=== PATIENT | female | born 1955 | race Caucasian/White ===

== ENCOUNTER → 2017-01-20 19:09 | Emergency (ER) | payer BC ==
[~2017-01-20 19:09] MED LIST: Dexamethasone IV* 4 MG/ML 1 ML (4 MG) IM ONE; Etomidate* 2 MG/ML 10 ML VIAL IV ONE; Labetalol IV* 5 MG/ML 20 ML VIAL IV PUSH ONE; Labetalol IV* 5 MG/ML 20 ML VIAL ONE; Lidocaine 2% (CARDIAC)* 20 MG/ML 5 ML SYRINGE (100 MG) INJ ONE; Lidocaine 2% (CARDIAC)* 20 MG/ML 5 ML SYRINGE (100 MG) ONE; Morphine INJ* 4 MG/ML 1 ML CARPUJECT IV ONE; NS 0.9% 1000 ML* 1,000 ML IV ONE; PROCHLORPERAZINE INJ 5 MG/ML 2 ML VIAL IV ONE; Propofol* 100 ML ONE; Propofol* 500 MG/50 ML BTL IV SCH; Rocuronium* 10 MG/ML VIAL IV ONE; Rocuronium* 10 MG/ML VIAL ONE; diPHENhydraMINE IV* 25 MG in NS 0.9% 50 ML* 50 ML IVPB ONE; fentaNYL* 50 MCG/ML 2 ML VIAL (100 MCG VIAL) IV SLOW PU ONE; fentaNYL* 50 MCG/ML 2 ML VIAL (100 MCG VIAL) ONE; niCARdipine 0.1MG/ML IVPREMIX* 20 MG/200 ML BAG IV ONE
[2017-01-20 19:43] LABS: Hematocrit 42 % (35-47); Hemoglobin 14.3 g/dl (12.0-16.0); Mean Corpuscular HGB Conc 34 g/dl (31-36); Mean Corpuscular Hemoglobin 31 pg (27-31); Mean Corpuscular Volume 90 fL (80-97); Mean Platelet Volume 8 um3 (7.4-10.4); Red Blood Count 4.63 10^6/ul (4.0-5.4); Red Cell Distribution Width 12 % (10.5-15); White Blood Count 8.9 10^3/ul (3.5-10.8)
[2017-01-20 19:59] LABS: Albumin 4.4 g/dL (3.2-5.2); BUN/Creatinine Ratio 18.7 (8-20); Calcium 9.1 mg/dL (8.6-10.3); EGFR African American 101.4 (>60); EGFR Non-African American 78.8 (>60); Globulin 3.1 g/dL (2-4); Total Bilirubin 0.5 mg/dL (0.2-1.0); Total Protein 7.5 g/dL (6.4-8.9)
--- NOTE | 2017-01-20 20:12 | RAD ---
Indication: Evaluate for subarachnoid hemorrhage. Patient with headaches. CT of the brain was performed without IV contrast. There is shift of the midline structures towards the left of approximately 9.8 mm. There is a large right temporal intraparenchymal hematoma measuring up to 5.6 x 3.9 cm. This is predominantly in the right temporal lobe. There is displacement of the temporal horn of the right lateral ventricle with effacement of the suprasellar cistern. I cannot totally exclude uncal herniation. IMPRESSION: Large parenchymal hematoma in the right temporal lobe with medial displacement of the temporal horn of the right lateral ventricle. There is effacement of the suprasellar cistern. The possibility of uncal herniation should BE considered. Findings discussed with Dr. Yo at 2008 hours
[2017-01-20 20:21] LABS: Potassium 3.7 mmol/L (3.5-5.0)
[2017-01-20 21:08] VITALS: BP 157/93
--- NOTE | 2017-01-20 21:22 | ED ---
Taylor Wills Thomas, scribed for John Yo MD on 01/20/17 at 1929 . Headache - HPI Summary HPI Summary: The pt is a 61 y/o F BIBA c/o a sudden-onset R-sided RIGGS that began today at 17: 30. The pain radiates across the left side of her head. She has been having an intermittent dull headache for the last week. She says this is the worst headache of life. The pain is rated 8/10. The pain is aggravated by nothing. It is not aggravated by bright lights, smells, changes in head position, or palpation. 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 Pt additionally c/ o vomiting (three episodes). Pt denies focal weakness, photophobia, fever, gait disruption, and visual changes. The patient is accompanied by three family members. - History Of Current Complaint Chief Complaint: EDHeadache Stated Complaint: VOMITING/HEAD PAIN Hx Obtained From: Patient, Family/Gynaecological Oncologist - two family members are present Onset/Duration: Sudden Onset, Started hours ago - onset today at 17:30, Still Present Initially Headache Was: "Worst Headache Ever" Currently Pain Is: Current Pain Scale(0-10)= - 8 Timing: Constant Location of Headache: Other: - R-sided Radiates to: Left side Aggravating Factor: Nothing, Other - NOT aggravated by bright lights, smells, head position, or palpation Allevating Factors: Nothing Associated Signs And Symptoms: Vomiting - three episodes, Other (Noted In Comments) - NEGATIVE: focal weakness, photophobia, fever, gait disruption, visual changes - Allergies/Home Medications Allergies/Adverse Reactions: Allergies Allergy/AdvReac Type Severity Reaction Status Date / Time Cephalexin [From Keflex] Allergy Muscle Ache Verified 01/20/17 19:30 Home Medications: Home Medications Lisinopril [Zestril 10 MG-] 10 mg PO ONCE 01/20/17 [History Confirmed 01/20/17] PMH/Surg Hx/FS Hx/Imm Hx Previously Healthy: No Endocrine/Hematology History: Reports: Other Endocrine/Hematological Disorders - Hx Tatiana Cardiovascular History: Reports: Hx Hypercholesterolemia, Hx Hypertension Neurological History: Denies: Hx CVA - Cancer History Hx Chemotherapy: No Hx Radiation Therapy: No Infectious Disease History: No Infectious Disease History: Denies: Traveled Outside the [place] in Last 30 Days - Family History Known Family History: Positive: Cardiac Disease, Other - CVA - Social History Alcohol Use: Rare Substance Use Type: Reports: None Smoking Status (MU): Never Smoked Tobacco Review of Systems Negative: Fever Negative: Photophobia, Other - NEGATIVE: visual changes Positive: Vomiting - three episodes Neurological: Other - NEGATIVE: gait disruption Positive: Headache. Negative: Weakness - focal All Other Systems Reviewed And Are Negative: Yes Physical Exam - Summary Physical Exam Summary: Appearance: Well-appearing, Well-nourished Skin: Warm Eyes: Normal ENT: Normal. There is no photophobia or phonophobia. Neck: Supple, nontender Respiratory: Clear to auscultation Cardiovascular: Normal Abdomen: Soft, nontender Bowel: Present Musculoskeletal: Normal, Strength/ROM Intact. Good ROM in her neck. There is no midline cervical tenderness. Neurological: Normal, Alert, Oriented to Person. CN II-XII intact. Negative Kernig's sign. Psychiatric: Normal Triage Information Reviewed: Yes Vital Signs On Initial Exam: Initial Vitals Temp Pulse Resp BP Pulse Ox 97.8 F 88 18 154/91 93 01/20/17 19:18 01/20/17 19:18 01/20/17 19:18 01/20/17 19:18 01/20/17 19:18 Vital Signs Reviewed: Yes - [place] Coma Scale Coma Scale Total: 15 Procedures - Intubation Time of Intubation: 21:00 - approx Intubation Method: orotracheal Tube Size (cm): 7.5 Breath Sounds after Intubation: equal Intubation Complications: no complications Post Intubation Xray: No - Unable to obtain due to time constrants. Med used: Atomadite and rocuronium Diagnostics - Vital Signs Vital Signs Temp Pulse Resp BP Pulse Ox 01/20/17 19:18 97.8 F 88 18 154/91 93 - Laboratory Lab Results: Lab Results 01/20/17 01/20/17 01/20/17 Range/Units 19:30 19:30 19:30 WBC 8.9 (3.5-10.8) 10^3/ul RBC 4.63 (4.0-5.4) 10^6/ul Hgb 14.3 (12.0-16.0) g/dl Hct 42 (35-47) % MCV 90 (80-97) fL MCH 31 (27-31) pg MCHC 34 (31-36) g/dl RDW 12 (10.5-15) % Plt Count 301 (150-450) 10^3/ul MPV 8 (7.4-10.4) um3 Neut % (Auto) 57.9 (38-83) % Lymph % (Auto) 31.4 (25-47) % [place] % (Auto) 8.0 (1-9) % Eos % (Auto) 1.9 (0-6) % Baso % (Auto) 0.8 (0-2) % Absolute Neuts (auto) 5.2 (1.5-7.7) 10^3/ul Absolute Lymphs (auto) 2.8 (1.0-4.8) 10^3/ul Absolute Monos (auto) 0.7 (0-0.8) 10^3/ul Absolute Eos (auto) 0.2 (0-0.6) 10^3/ul Absolute Basos (auto) 0.1 (0-0.2) 10^3/ul Absolute Nucleated RBC 0.01 10^3/ul Nucleated RBC % 0.1 INR (Anticoag Therapy) 0.88 L (0.89-1.11) Sodium 135 (133-145) mmol/L Potassium 3.7 (3.5-5.0) mmol/L Chloride 100 L (101-111) mmol/L Carbon Dioxide 26 (22-32) mmol/L Anion Gap 9 (2-11) mmol/L BUN 14 (6-24) mg/dL Creatinine 0.75 (0.51-0.95) mg/dL Est GFR ( Amer) 101.4 (>60) Est GFR (Non-Af Amer) 78.8 (>60) BUN/Creatinine Ratio 18.7 (8-20) Glucose 113 H (70-100) mg/dL Calcium 9.1 (8.6-10.3) mg/dL Total Bilirubin 0.50 (0.2-1.0) mg/dL AST 23 (13-39) U/L ALT 27 (7-52) U/L Alkaline Phosphatase 54 (34-104) U/L Total Protein 7.5 (6.4-8.9) g/dL Albumin 4.4 (3.2-5.2) g/dL Globulin 3.1 (2-4) g/dL Albumin/Globulin Ratio 1.4 (1-3) Blood Type Antibody Screen 01/20/17 Range/Units 19:30 WBC (3.5-10.8) 10^3/ul RBC (4.0-5.4) 10^6/ul Hgb (12.0-16.0) g/dl Hct (35-47) % MCV (80-97) fL MCH (27-31) pg MCHC (31-36) g/dl RDW (10.5-15) % Plt Count (150-450) 10^3/ul MPV (7.4-10.4) um3 Neut % (Auto) (38-83) % Lymph % (Auto) (25-47) % [place] % (Auto) (1-9) % Eos % (Auto) (0-6) % Baso % (Auto) (0-2) % Absolute Neuts (auto) (1.5-7.7) 10^3/ul Absolute Lymphs (auto) (1.0-4.8) 10^3/ul Absolute Monos (auto) (0-0.8) 10^3/ul Absolute Eos (auto) (0-0.6) 10^3/ul Absolute Basos (auto) (0-0.2) 10^3/ul Absolute Nucleated RBC 10^3/ul Nucleated RBC % INR (Anticoag Therapy) (0.89-1.11) Sodium (133-145) mmol/L Potassium (3.5-5.0) mmol/L Chloride (101-111) mmol/L Carbon Dioxide (22-32) mmol/L Anion Gap (2-11) mmol/L BUN (6-24) mg/dL Creatinine (0.51-0.95) mg/dL Est GFR ( Amer) (>60) Est GFR (Non-Af Amer) (>60) BUN/Creatinine Ratio (8-20) Glucose (70-100) mg/dL Calcium (8.6-10.3) mg/dL Total Bilirubin (0.2-1.0) mg/dL AST (13-39) U/L ALT (7-52) U/L Alkaline Phosphatase (34-104) U/L Total Protein (6.4-8.9) g/dL Albumin (3.2-5.2) g/dL Globulin (2-4) g/dL Albumin/Globulin Ratio (1-3) Blood Type B Positive Antibody Screen Negative Result Diagrams: 01/20/17 19:30 01/20/17 19:30 Lab Statement: Any lab studies that have been ordered have been reviewed, and results considered in the medical decision making process. - CT CT Brain CT Interpretation: Positive (See Comments) - Large parenchymal hematoma in the right temporal lobe with medial displacement of the temporal horn of the right lateral ventricle. There is effacement of the suprasellar cistern. The possibility of uncal herniation should BE considered. ED physician has reviewed this report and agrees. CT Interpretation Completed By: Radiologist Headache Course/Dx - Course Course Of Treatment: I spoke with the [facility] at 20:15. The patient was intubated. Assessment/Plan: The patient was found to have a large intracerebral hemorrhage with midline shift. I spoke immediately with the neurosurgeon at [facility] Dr. Mares, who accepts the patient for transfer for immediate treatment. Patient intubated for airway protection with RSI. Etomidate and Rocuronium used for induction. I did not give patient lidocaine based on prior adverse reaction. ET tube confirmed with end tidal co2, colorimetry, and auscultation. Patient placed on ventilator. No complications. Patient stable for transfer. Cardene drip for blood pressure control and Propofol drip for sedation initiated here in emergency department. Patient also given 1g of Keppra for seizure prophylaxis. I had a conversation with the family prior to transfer to obtain consent for helicopter transfer based on time differences. Patients family agreed that helicopter transfer would be appropriate - Diagnoses Provider Diagnoses: Intraparenchymal hematoma of brain - Physician Notifications Discussed Care Of Patient With: Quinten Mares Time Discussed With Above Provider: 20:19 Instructed by Provider To: Other - I spoke with Dr. Mares, neurosurgeon at [facility], who will accept the patient for transfer. - Critical Care Time Critical Care Time: 75-104 min - 100 minutes not counting time spent on procedures. I spent 100 minutes of cc time having conversations with faimly, patient, transfer center, other providers, titrating medicatoins, and monitoring clinical response Discharge - Discharge Plan Condition: Critical Disposition: OTHER Discharge Disposition Comment: Transferred to [facility] for neurosurgery coverage. Referrals: Terri Schneider NP [Primary Care Provider] - The documentation as recorded by the Taylor burroughs Thomas accurately reflects the service I personally performed and the decisions made by me, John Yo MD.
== END ==
LOC: ED 19:09
DX: I61.8 Other nontraumatic intracerebral hemorrhage (principal); E06.3 Autoimmune thyroiditis; I10 Essential (primary) hypertension; E78.00 Pure hypercholesterolemia, unspecified
CPT/HCPCS: 31500; 36415; 70450; 80053; 85025; 85610; 86850; 86900; 86901; 94002; 96360; 96372; 96374; 96375; 96376; 99285; J0780; J1100; J1200; J2270; J2704; J3010

== ENCOUNTER 2017-05-24 15:32 | Emergency (ER) | payer BC ==
[2017-05-24 17:12] LABS: ABS Basophils 0.1 10^3/ul (0-0.2); ABS Eosinophils 0.1 10^3/ul (0-0.6); ABS Lymphocytes 1.2 10^3/ul (1.0-4.8); ABS Monocytes 1.1 10^3/ul (0-0.8); ABS Neutrophils 7.9 10^3/ul (1.5-7.7); ABS Nucleated RBC 0 10^3/ul; Eosinophil % 1.3 % (0-6); Hematocrit 42 % (35-47); Lymphocyte % 11.5 % (25-47); Mean Corpuscular HGB Conc 34 g/dl (31-36); Mean Corpuscular Hemoglobin 31 pg (27-31); Mean Corpuscular Volume 92 fL (80-97); Mean Platelet Volume 8 um3 (7.4-10.4); Nucleated Red Blood Cells % 0; Platelet Count 258 10^3/ul (150-450); Red Blood Count 4.49 10^6/ul (4.0-5.4); Red Cell Distribution Width 13 % (10.5-15); White Blood Count 10.4 10^3/ul (3.5-10.8)
[2017-05-24 17:25] LABS: INR 0.88 (0.77-1.02)
--- NOTE | 2017-05-24 17:29 | RAD ---
INDICATION: Dizziness. Hypertension COMPARISON: January 12, 2015 TECHNIQUE: An AP portable view obtained at 1715 hours is submitted. FINDINGS: Bones/Soft Tissues: There are no acute bony findings. Cardiomediastinal: The cardiomediastinal silhouette is normal. Lungs: There are no infiltrates. Pleura: There are no pleural effusions. Other: None IMPRESSION: NORMAL CHEST.
[2017-05-24 17:40] LABS: EGFR Non-African American 68.2 (>60)
[2017-05-24 18:27] LABS: Urine Appearance Cloudy; Urine Blood 1+ (Negative); Urine Color Yellow; Urine Ketones Negative (Negative); Urine Protein Negative (Negative); Urine Specific Gravity 1.013 (1.010-1.030); Urine Urobilinogen Negative (Negative)
--- NOTE | 2017-05-24 19:05 | RAD ---
INDICATION: History of brain parenchymal mass with craniotomy COMPARISON: January 20, 2017 TECHNIQUE: Noncontrast axial source images were acquired from the skull base to the vertex. FINDINGS: Ventricles/sulci: The ventricles and cisterns are normal in size and configuration for age. Brain parenchyma: The hemorrhagic mass in the right parietal lobe has been excised and there is now encephalomalacia.. The mass effect has essentially resolved Intracranial hemorrhage: No current intracranial hemorrhage. Extra-axial spaces: There are no abnormal extra axial fluid collections or evidence of extra-axial mass. Calvarium: Right-sided craniotomy defect. Scalp: There is no evidence of scalp or extracalvarial soft tissue abnormality. Paranasal sinuses/mastoid: The paranasal sinuses and mastoid air cells are clear. Other: None. IMPRESSION: Interval craniotomy with excision of the hemorrhagic right parietal mass.
[2017-05-24] MEDS ORDERED: NS 0.9% 1000 ML* 1,000 ML IV ONE (19:58)
--- NOTE | 2017-05-24 20:15 | ED ---
Drake Wills Tiffany, scribed for Ivy Betts MD on 05/24/17 at 1835 . Complex/Multi-Sys Presentation - HPI Summary HPI Summary: 61 yo F s/p ruptured aneurysm on 01/20/17 [place]'d [place] [facility] [place] to [facility] for neurosurg with Dr. Calles, s/p surg for glioblastoma on 05/10/17 at [facility] dx' d in f/u of the ruptured aneurysm, hx HTN, presents with dizziness, weakness, lightheadedness, tingling and numbess to her right parietal surgical site. Pt was seen by Dr. Calles's surgical PA on 04/20/17 who stated wound was healing well , and confirmed dx glioblastoma and all was well. Pt states she was doing well until 05/23/17 when she missed a dose of lisinopril 10mg, which she took later in the day when she realized it, and then continued to keep the lisinopril on a q 24 hr schedule, so she took it later this afternoon. Pt states she has had days where she feels weak and dizzy on occasion, but today she felt more weak and dizzy than usual, and at home her Bp was 172/110 on her monitor at home, just after taking the lisinopril. Pt contacted her PCP about this today, Dr. Navarrete at [place], who advised pt to seek medical attention. Pt was on decadron and keppra post 05/10/17 surg, and was weaned from the steroids and keppra, last dose 05/20/17. - History Of Current Complaint Chief Complaint: EDGeneral Time Seen by Provider: 05/24/17 17:13 Hx Obtained From: Patient, Family/Matlab Developer - Onset/Duration: Gradual Onset, Lasting Hours - Since this morning, Still Present Timing: Constant Severity Currently: Moderate Severity Initially: Moderate Aggravating Factor(s): Nothing Alleviating Factor(s): Nothing Associated Signs And Symptoms: Positive: Dizziness, Weakness, Other - tingling and numbness at right parietal surgical site Related History: Recent Illness, Recent Hospitalization - Allergies/Home Medications Allergies/Adverse Reactions: Allergies Allergy/AdvReac Type Severity Reaction Status Date / Time cephalexin [From Keflex] Allergy Muscle Ache Verified 05/24/17 17:20 Home Medications: Home Medications Lisinopril TAB* [Prinivil TAB*] 10 mg PO DAILY 05/24/17 [History Confirmed 05/24] PMH/Surg Hx/FS Hx/Imm Hx Previously Healthy: No Endocrine/Hematology History: Reports: Other Endocrine/Hematological Disorders - Hx Tatiana Denies: Hx Diabetes Cardiovascular History: Reports: Hx Hypercholesterolemia, Hx Hypertension Denies: Hx Pacemaker/ICD History: Denies: Hx Renal Disease Sensory History: Denies: Hx Hearing Aid Neurological History: Reports: Hx CVA - aneurysmal bleed , Other Neuro Impairments/Disorders - glioblastoma surg 05/10/17 Psychiatric History: Denies: Hx Panic Disorder - Cancer History Cancer Type, Location and Year: glioblastoma 05/10/17 Hx Chemotherapy: No Hx Radiation Therapy: No - Surgical History Surgery Procedure, Year, and Place: C SECTION. HEMORRHO[facility]ECT[facility]Y. [facility] Infectious Disease History: No Infectious Disease History: Denies: Traveled Outside the [place] in Last 30 Days - Family History Known Family History: Positive: Cardiac Disease, Other - Father from stroke - Social History Lives: With Family Alcohol Use: Rare Hx Substance Use: No Substance Use Type: Reports: None Hx Tobacco Use: No Smoking Status (MU): Never Smoked Tobacco Review of Systems Constitutional: Negative Eyes: Negative ENT: Negative Cardiovascular: Negative Respiratory: Negative Musculoskeletal: Negative Skin: Negative Positive: Weakness - generalized, dizzy Psychological: Normal All Other Systems Reviewed And Are Negative: Yes Physical Exam - Summary Physical Exam Summary: Appearance: 61 yo F in mild distress, speech clear, GCS 15 Skin: Warm, color reflects adequate perfusion, healing scar right parietal area. No drainage, swelling or redness Head: s/p craniotomy on right Eyes: PERRL EOMI, no nystagmus ENT: Normal inspection Neck: Supple, no nodes, no JVD. Respiratory: Lungs clear, Normal breath sounds, no respiratory distress Cardio: RRR, No murmur, pulses normal, brisk capillary refill Abdomen: soft, nontender Musculoskeletal: Strength Intact/ ROM intact. No calf tenderness. No edema. Neuro: Alert O x 3, CN II-XII intact, Motor 5/5 Sensation intact, no focal deficit. Psychological: Normal Triage Information Reviewed: Yes Vital Signs On Initial Exam: Initial Vitals Temp Pulse Resp BP Pulse Ox 97.2 F 130 16 160/111 97 05/24/17 15:36 05/24/17 15:36 05/24/17 15:36 05/24/17 15:36 05/24/17 15:36 Vital Signs Reviewed: Yes Diagnostics - Vital Signs Vital Signs Temp Pulse Resp BP Pulse Ox 05/24/17 18:13 117 110/79 05/24/17 18:00 106 19 96 05/24/17 17:57 110/79 05/24/17 17:30 104 16 118/70 94 05/24/17 17:00 103 15 121/66 95 05/24/17 16:51 106 20 93 05/24/17 16:49 119/78 05/24/17 15:36 97.2 F 130 16 160/111 97 - Laboratory Lab Results: Lab Results 05/24/17 05/24/17 05/24/17 Range/Units 16:52 16:52 16:52 WBC 10.4 (3.5-10.8) 10^3/ul RBC 4.49 (4.0-5.4) 10^6/ul Hgb 14.0 (12.0-16.0) g/dl Hct 42 (35-47) % MCV 92 (80-97) fL MCH 31 (27-31) pg MCHC 34 (31-36) g/dl RDW 13 (10.5-15) % Plt Count 258 (150-450) 10^3/ul MPV 8 (7.4-10.4) um3 Neut % (Auto) 76.2 (38-83) % Lymph % (Auto) 11.5 L (25-47) % [place] % (Auto) 10.3 H (1-9) % Eos % (Auto) 1.3 (0-6) % Baso % (Auto) 0.7 (0-2) % Absolute Neuts (auto) 7.9 H (1.5-7.7) 10^3/ul Absolute Lymphs (auto) 1.2 (1.0-4.8) 10^3/ul Absolute Monos (auto) 1.1 H (0-0.8) 10^3/ul Absolute Eos (auto) 0.1 (0-0.6) 10^3/ul Absolute Basos (auto) 0.1 (0-0.2) 10^3/ul Absolute Nucleated RBC 0 10^3/ul Nucleated RBC % 0 INR (Anticoag Therapy) 0.88 (0.77-1.02) Sodium 135 (133-145) mmol/L Potassium 4.1 (3.5-5.0) mmol/L Chloride 102 (101-111) mmol/L Carbon Dioxide 27 (22-32) mmol/L Anion Gap 6 (2-11) mmol/L BUN 16 (6-24) mg/dL Creatinine 0.85 (0.51-0.95) mg/dL Est GFR ( Amer) 87.7 (>60) Est GFR (Non-Af Amer) 68.2 (>60) BUN/Creatinine Ratio 18.8 (8-20) Glucose 121 H (70-100) mg/dL Lactic Acid (0.5-2.0) mmol/L Calcium 9.1 (8.6-10.3) mg/dL Magnesium 2.7 (1.9-2.7) mg/dL Total Bilirubin 0.60 (0.2-1.0) mg/dL AST 22 (13-39) U/L ALT 40 (7-52) U/L Alkaline Phosphatase 53 (34-104) U/L Total Creatine Kinase 58 (10-223) U/L Troponin I 0.01 (<0.04) ng/mL C-Reactive Protein 65.22 H (< 5.00) mg/L Total Protein 7.0 (6.4-8.9) g/dL Albumin 3.9 (3.2-5.2) g/dL Globulin 3.1 (2-4) g/dL Albumin/Globulin Ratio 1.3 (1-3) TSH 1.46 (0.34-5.60) mcIU/mL Urine Color Urine Appearance Urine pH (5-9) Ur Specific [place] (1.010-1.030) Urine Protein (Negative) Urine Ketones (Negative) Urine Blood (Negative) Urine Nitrate (Negative) Urine Bilirubin (Negative) Urine Urobilinogen (Negative) Ur Leukocyte Esterase (Negative) Urine WBC (Auto) (Absent) Urine RBC (Auto) (Absent) Ur Squamous Epith Cells (Absent) Urine Bacteria (Absent) Urine Glucose (Negative) 05/24/17 05/24/17 Range/Units 16:52 18:10 WBC (3.5-10.8) 10^3/ul RBC (4.0-5.4) 10^6/ul Hgb (12.0-16.0) g/dl Hct (35-47) % MCV (80-97) fL MCH (27-31) pg MCHC (31-36) g/dl RDW (10.5-15) % Plt Count (150-450) 10^3/ul MPV (7.4-10.4) um3 Neut % (Auto) (38-83) % Lymph % (Auto) (25-47) % [place] % (Auto) (1-9) % Eos % (Auto) (0-6) % Baso % (Auto) (0-2) % Absolute Neuts (auto) (1.5-7.7) 10^3/ul Absolute Lymphs (auto) (1.0-4.8) 10^3/ul Absolute Monos (auto) (0-0.8) 10^3/ul Absolute Eos (auto) (0-0.6) 10^3/ul Absolute Basos (auto) (0-0.2) 10^3/ul Absolute Nucleated RBC 10^3/ul Nucleated RBC % INR (Anticoag Therapy) (0.77-1.02) Sodium (133-145) mmol/L Potassium (3.5-5.0) mmol/L Chloride (101-111) mmol/L Carbon Dioxide (22-32) mmol/L Anion Gap (2-11) mmol/L BUN (6-24) mg/dL Creatinine (0.51-0.95) mg/dL Est GFR ( Amer) (>60) Est GFR (Non-Af Amer) (>60) BUN/Creatinine Ratio (8-20) Glucose (70-100) mg/dL Lactic Acid 1.3 (0.5-2.0) mmol/L Calcium (8.6-10.3) mg/dL Magnesium (1.9-2.7) mg/dL Total Bilirubin (0.2-1.0) mg/dL AST (13-39) U/L ALT (7-52) U/L Alkaline Phosphatase (34-104) U/L Total Creatine Kinase (10-223) U/L Troponin I (<0.04) ng/mL C-Reactive Protein (< 5.00) mg/L Total Protein (6.4-8.9) g/dL Albumin (3.2-5.2) g/dL Globulin (2-4) g/dL Albumin/Globulin Ratio (1-3) TSH (0.34-5.60) mcIU/mL Urine Color Yellow Urine Appearance Cloudy Urine pH 7.0 (5-9) Ur Specific [place] 1.013 (1.010-1.030) Urine Protein Negative (Negative) Urine Ketones Negative (Negative) Urine Blood 1+ H (Negative) Urine Nitrate Negative (Negative) Urine Bilirubin Negative (Negative) Urine Urobilinogen Negative (Negative) Ur Leukocyte Esterase Trace H (Negative) Urine WBC (Auto) Trace(0-5/hpf) (Absent) Urine RBC (Auto) Trace(0-2/hpf) (Absent) Ur Squamous Epith Cells Present H (Absent) Urine Bacteria Absent (Absent) Urine Glucose Negative (Negative) Result Diagrams: 05/24/17 16:52 05/24/17 16:52 Lab Statement: Any lab studies that have been ordered have been reviewed, and results considered in the medical decision making process. - EKG 1636 Cardiac Rate: Tachycardia - 107 EKG Rhythm: Sinus Tachycardia ST Segment: Non-Specific Ectopy: None EKG Interpretation: Nl AVIVCT, Nl QTc, left axis, q in III, AVF EKG Comparison: Other - in SR c/w 01/12/17 Complex Multi-Symp Course/Dx Course Of Treatment: Pt s/p aneurysmal bleed 01/19, s/p glioblastoma surg 05/10/17 , recently off steroids and keppra, hx HTN, c/o dizziness, weakness, elevated BP. Care to Dr. Moreno pending CT brain result. HTN controlled in ED without medications, initially HTN at triage. - Diagnoses Differential Diagnoses/HQI/PQRI: CVA, Other - cerebral edema Provider Diagnoses: Dizziness, Hypertension, poor control, Glioblastoma Discharge - Discharge Plan Condition: Stable Disposition: OTHER Discharge Disposition Comment: care to Dr. Moreno at change of shift 05/24/17, 1900. Referrals: Maciej Navarrete, [Primary Care Provider] - The documentation as recorded by the Drake burroughs Tiffany accurately reflects the service I personally performed and the decisions made by me, Ivy Betts MD.
[2017-05-24 21:10] VITALS: BP 123/78
--- NOTE | 2017-05-24 21:29 | ED ---
I, Altagracia Reza, scribed for aAshish Moreno MD on 05/24/17 at 1938 . Progress - Progress Note Progress Note: This patient was signed out from Dr. Betts at shift change, awaiting CXR and Brain CT results. A brain CT reveals Interval craniotomy with excision of the hemorrhagic right parietal mass, as per radiologist. ED Physician has reviewed this report. A CXR reveals a normal chest, as per radiologist. ED Physician has reviewed this report. An EKG, at 16:21, reveals sinus tachycardia at a rate of 107 BPM, normal axis, and normal ST. Upon evaluation at 19:50, patient's systolic BP normalized to 120. Her heart rate fell from 115 BPM to 100 BPM when I told her that her brain CT was normal. Patient was given IV hydration before discharge. - EKG/XRAY/CT XRAY: chest - unremarkable CT: Brain CT is unremarkable Re-Evaluation - Re-Evaluation First Eval Change: Improved - no CP/SOB. HR into 90s. Pt states great relief of anxiety to know CT was neg. Course/Dx - Course Course Of Treatment: Pt was pending CT scan to eval for cerebral edema. Hadnt taken BP med until prior to arrival. BP normalized here. HR went from 110-115 down to 100-105 just by telling pt head CT neg. Hydrated her and HR into 90s. Scheduled to have a Holter monitor placed tomorrow. d/c to have close f/u with PMD and her neurosurgeon. - Diagnoses Provider Diagnoses: Elevated blood pressure reading, Glioblastoma determined by biopsy of brain, Sinus tachycardia The documentation as recorded by the Libia burroughs Julia accurately reflects the service I personally performed and the decisions made by me, Aashish Moreno MD.
== END 2017-05-24 21:24 | disposition home or self-care (01) ==
LOC: ED 15:32
DX: R42 Dizziness and giddiness (principal); I10 Essential (primary) hypertension; C71.9 Malignant neoplasm of brain, unspecified; R00.0 Tachycardia, unspecified; Z86.79 Personal history of other diseases of the circulatory system; Z88.3 Allergy status to other anti-infective agents
CPT/HCPCS: 36415; 70450; 71045; 80053; 81003; 81015; 82550; 83605; 83735; 84443; 84484; 85025; 85610; 86140; 87086; 93005; 96360; 99283